=== PATIENT | female | born 1985 | race Caucasian/White ===

== ENCOUNTER 2021-08-22 22:41 | Inpatient (IN) | payer MEDICAID, SELFPAY ==
[2021-08-22 22:00] VITALS: BP 102/72; PULSE 111; RESP 18; TEMP 36.8; O2SAT 97
[2021-08-22 22:47] VITALS: BMI 28.3
--- NOTE | 2021-08-23 00:59 | PC.NURSE ---
Patient Stated that she use to have a C-PAP but stopped using it due to discomfort. Asked Patient if she wanted a C-PAP she responded NO .
[2021-08-23] MEDS: acyclovir 800 mg Tablet 400 MG PO ×3 (01:40→20:12)
[2021-08-23 06:00] VITALS: BP 99/65; PULSE 73; RESP 18; TEMP 36.6; O2SAT 96
[2021-08-23] MEDS: nicotine 21 mg Patch 1 PATCH TRANSDERMA (10:09)
[2021-08-23] MEDS: CLONazepam 1 mg Tablet 0.5 MG PO ×2 (10:09→17:43)
[2021-08-23] MEDS: OXcarbazepine 300 mg Tablet PO ×2 (10:11→17:43)
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
--- NOTE | 2021-08-23 11:23 | NPU.GN ---
[facility] Group Topic:Positive Thoughts/ Negative Thoughts General Mood of Group: Genesis did not attend group today. She wanted to sleep.
[2021-08-23] MEDS: lithium carbonate 300 mg Capsule 600 MG PO (20:12)
[2021-08-23] MEDS: zolpidem 5 mg Tablet 10 MG PO (20:12)
[2021-08-23 21:32] VITALS: BP 107/73; PULSE 71; RESP 20; TEMP 36.5; O2SAT 100
[2021-08-24 06:00] VITALS: BP 103/67; PULSE 60; RESP 18; TEMP 36.7; O2SAT 97
[2021-08-24] MEDS: CLONazepam 1 mg Tablet 0.5 MG PO ×2 (08:10→17:26)
[2021-08-24] MEDS: OXcarbazepine 300 mg Tablet PO ×2 (08:10→17:26)
[2021-08-24] MEDS: acyclovir 800 mg Tablet 400 MG PO ×2 (08:10→20:14)
[2021-08-24] MEDS: nicotine 21 mg Patch 1 PATCH TRANSDERMA (08:11)
--- NOTE | 2021-08-24 11:59 | NPU.GN ---
[facility] Topic:Jassi Hodges Activity General Mood of Group: Genesis did not attend group today.
[2021-08-24 14:00] VITALS: BP 120/67; PULSE 77; RESP 16; TEMP 36.6; O2SAT 99
--- NOTE | 2021-08-24 14:37 | W.PM.NPUPNS ---
Subjective NPU Subjective: Patient presents today reporting that she would like to go home sooner rather than later. She reports that she is been struggling with the of her cousin and the grief from that. She reports she has children at home and that she would really like to get home to them. We talked about the behaviors she embarked upon and needing to know that she feels better as the reason why she should be discharged not just she wants to go home. She denies any side effects of the medication but denies feeling better at any appreciable level. She reports he is eating and sleeping okay. Mental Status Exam MSE Comments: This is an overweight older white female in hospital scrubs with limited grooming and eye contact. Significant psychomotor retardation. But mostly cooperative with exam in mild distress. Speech was decreased rate and volume. Mood described as okay, affect subdued . Thought process organized. The continent: patient denies suicidal or homicidal ideation, there are no delusions reported or noted, she denied auditory or visual hallucinations. Attention and concentration were limited and memory was mostly reliable but none were formally tested. She is alert and oriented times three. Insight and judgment are limited and impulse control is limited. Vitals/I&O/Wt Last Vital Signs Temp 98.0 F 08/24/21 06:00 Pulse 60 08/24/21 06:00 Resp 18 08/24/21 06:00 BP 103/67 08/24/21 06:00 Pulse Ox 97 08/24/21 06:00 Weight last 48 hrs Weight 75 kg A&P Assessment and plan (1) Borderline personality disorder: Status: Acute (2) Suicidal ideation: Status: Acute (3) Depression: Status: Acute (4) Anxiety: Status: Acute Plan This is a 36-year-old female who reports diagnoses with borderline personality disorder.? She has been tried on many medications for the last 3 years but nothing has been very effective.? She says things worked but they stopped working.? She has not been on a antiepileptic medication. Plan: 1.? Continue current medication.? We added Trileptal 300 mg twice daily and will increase as tolerated 2.? Continue every 15 minute checks for safety. 3.? Encourage individual, group and milieu therapies. 4.? Encourage sober living treatment after discharge at the highest level of care to which she is willing to commit. Involuntary Hold Information 96 Hour Hold: 96 Hour Involuntary Admission: No Attestations NPU Medical Necessity Statement*: Inpatient hospitalization is medically necessary and the clinically appropriate intervention at this time.? We will initiate and monitor medications and make changes as indicated.? 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
[2021-08-24] MEDS: ibuprofen 600 mg Tablet PO ×2 (15:57→20:15)
[2021-08-24] MEDS: zolpidem 5 mg Tablet 10 MG PO (20:14)
[2021-08-24] MEDS: lithium carbonate 300 mg Capsule 600 MG PO (20:15)
[2021-08-24 20:25] VITALS: BP 100/66; PULSE 86; RESP 15; TEMP 37.1; O2SAT 99
[2021-08-25] MEDS: ibuprofen 600 mg Tablet PO ×3 (05:44→19:05)
[2021-08-25 06:00] VITALS: BP 105/69; PULSE 68; RESP 17; TEMP 36.8; O2SAT 99
[2021-08-25] MEDS: acyclovir 800 mg Tablet 400 MG PO ×2 (10:13→20:10)
[2021-08-25] MEDS: OXcarbazepine 300 mg Tablet PO ×2 (10:14→19:05)
[2021-08-25] MEDS: CLONazepam 1 mg Tablet 0.5 MG PO ×2 (10:14→19:05)
[2021-08-25] MEDS: nicotine 21 mg Patch 1 PATCH TRANSDERMA (10:46)
[2021-08-25 14:00] VITALS: BP 109/72; PULSE 82; RESP 17; TEMP 36.7; O2SAT 100
--- NOTE | 2021-08-25 17:14 | W.PM.NPUPNS ---
Subjective NPU Subjective: Genesis presents today reporting that she is feeling a little better but is feeling really homesick and missing her children. Feel that all of her supports are there and there is limited benefit from being here. She also is having some pain and there has been some challenges to verify her medication. We discussed that we needed to talk to her significant other and identify that there is a feeling of safety on that and with her returning home as well. We discussed possible discharge in the next 48 hours. Mental Status Exam MSE Comments: This is an overweight older white female in hospital scrubs with limited grooming and eye contact. Less psychomotor retardation.? But mostly cooperative with exam in mild distress. Speech was decreased rate and volume. Mood described as better, affect congruent but tearful. Thought process organized. The continent: patient denies suicidal or homicidal ideation, there are no delusions reported or noted, she denied auditory or visual hallucinations. Attention and concentration were limited and memory was mostly reliable but none were formally tested. She is alert and oriented times three. Insight and judgment are limited and impulse control is limited. Vitals/I&O/Wt Last Vital Signs Temp 98.1 F 08/25/21 14:00 Pulse 82 08/25/21 14:00 Resp 17 08/25/21 14:00 BP 109/72 08/25/21 14:00 Pulse Ox 100 08/25/21 14:00 A&P Assessment and plan (1) Borderline personality disorder: Status: Acute (2) Suicidal ideation: Status: Acute (3) Depression: Status: Acute (4) Anxiety: Status: Acute Plan This is a 36-year-old female who reports diagnoses with borderline personality disorder.? She has been tried on many medications for the last 3 years but nothing has been very effective.? She says things worked but they stopped working.? She has not been on a antiepileptic medication. Plan: 1.? Continue current medication.? We added Trileptal 300 mg twice daily and will increase as tolerated 2.? Continue every 15 minute checks for safety. 3.? Encourage individual, group and milieu therapies. 4.? Encourage sober living treatment after discharge at the highest level of care to which she is willing to commit. Involuntary Hold Information 96 Hour Hold: 96 Hour Involuntary Admission: No Attestations NPU Medical Necessity Statement*: Inpatient hospitalization is medically necessary and the clinically appropriate intervention at this time.? We will initiate and monitor medications and make changes as indicated.?? 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
[2021-08-25] MEDS: hyDROXYzine 25 mg Capsule 50 MG PO (20:10)
[2021-08-25] MEDS: zolpidem 5 mg Tablet 10 MG PO (20:10)
[2021-08-25] MEDS: lithium carbonate 300 mg Capsule 600 MG PO (20:10)
[2021-08-25 20:46] VITALS: BP 114/79; PULSE 81; RESP 15; TEMP 36.8; O2SAT 99
[2021-08-26 06:00] VITALS: BP 99/68; PULSE 86; RESP 16; TEMP 36.7; O2SAT 97
[2021-08-26] MEDS: acyclovir 800 mg Tablet 400 MG PO (09:09)
[2021-08-26] MEDS: OXcarbazepine 300 mg Tablet PO ×2 (09:10→17:44)
[2021-08-26] MEDS: CLONazepam 1 mg Tablet 0.5 MG PO (09:10)
[2021-08-26] MEDS: ibuprofen 600 mg Tablet PO ×2 (11:43→17:44)
[2021-08-26] MEDS: nicotine 21 mg Patch 1 PATCH TRANSDERMA (11:43)
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
[2021-08-26] MEDS: hyDROXYzine 25 mg Capsule 50 MG PO (12:59)
--- NOTE | 2021-08-26 12:59 | PC.NURSE ---
PRN Medication Patient requesting medication for anxiety. Vistaril 50mg po given.
--- NOTE | 2021-08-26 13:40 | PC.NURSE ---
PRN Follow up Patient lying in bed with eyes closed. Resp even and unlabored
[2021-08-26 14:14] VITALS: BP 99/68; PULSE 86; RESP 16; TEMP 36.7; O2SAT 97
[2021-08-26] MEDS: CLONazepam 0.5 mg Tablet PO (18:11)
== END 2021-08-26 18:50 | disposition home or self-care (01) | DRG 881 ==
PROVIDERS: Admitting Provider Psychiatry & Neurology Psychiatry; Visit Provider Psychiatry & Neurology Psychiatry
DX: F32.A Depression, unspecified (principal); R45.851 Suicidal ideations; F41.9 Anxiety disorder, unspecified; F60.3 Borderline personality disorder; Z62.810 Personal history of physical and sexual abuse in childhood
CPT/HCPCS: 97165; J8499